=== PATIENT | female | born 1950 | race Caucasian/White ===

== ENCOUNTER 2017-05-07 08:09 | Inpatient (IN) | payer OTHER ==
--- NOTE | 2017-05-06 08:52 | HP ---
[facility] - Chief Complaint Chief Complaint: right knee pain - Past Medical History Allergies/Adverse Reactions: Allergies Allergy/AdvReac Type Severity Reaction Status Date / Time apple Allergy Severe CAN'T Verified 04/29/17 14:30 BREATH peach Allergy Severe Difficulty Verified 04/29/17 14:31 Breathing No Known Drug Allergies Allergy Verified 04/29/17 14:30 - Current Medications Current Medications: Home Medications Medication Instructions Recorded Amlodipine Besylate [Norvasc -] 10 mg PO DAILY 03/12/14 Lisinopril [Prinivil -] 40 mg PO DAILY 03/12/14 Metformin HCl 850 mg PO BID 03/12/14 Omeprazole Magnesium [Prilosec 20 mg PO DAILY #7 tablet 04/15/15 (OTC)] Atorvastatin Ca [Lipitor] 10 mg PO DAILY 04/29/17 Cholecalciferol (Vitamin D3) 1,000 unit PO DAILY 04/29/17 [Vitamin D3 -] Ferrous Sulfate 325 mg PO DAILY 04/29/17 Satellite Physical Exam - Physical Examination General Appearance: Well Nourished, Well Developed, Alert & Oriented x3 ENT: Clear Lung: Normal air movement Heart: Regular rate & rhythm Extremities: Other (right knee- + swelling, + ttp, decr rom, nvi xrays show severe tricompartmental djd) Neurological: Intact, Alert, Oriented Satellite Impression/Plan - Impression/Plan Impression: right knee djd Operative Procedure: right majo tkr Date to be Performed: 05/07/17
[2017-05-07] MEDS ORDERED: GABAPENTIN 300 MG CAPSULE (FP) PO ONE (08:44)
[2017-05-07] MEDS ORDERED: CELECOXIB 200 MG CAPSULE PO ONE (08:44)
[2017-05-07] MEDS ORDERED: TRANEXAMIC ACID 1000 MG/10 ML VIAL IVPUSH ONE (08:44)
[2017-05-07] MEDS ORDERED: oxyCODONE HCL 10 MG SUSTAINED ACTING TABLET PO ONE (08:44)
[2017-05-07] MEDS ORDERED: CEFAZOLIN 2 GM in DEXTROSE 5%-WATER - 50 ML IVPB ONE (08:44)
[2017-05-07 09:14] VITALS: BMI 37.8
[2017-05-07] MEDS ORDERED: DEXAMETHASONE SOD PHOSPHATE/PF 10 MG/ML SDV ONE (09:58)
[2017-05-07] MEDS ORDERED: MIDAZOLAM HCL 2 MG/2 ML SINGLE DOSE VIAL ONE ×2 (09:59→11:53)
[2017-05-07] MEDS ORDERED: BUPIVACAINE HCL/PF 0.5% (5MG/ML) 10 ML VIAL ONE (10:33)
[2017-05-07] MEDS ORDERED: SUCCINYLCHOLINE CHLORIDE 200 MG/10 ML VIAL ONE (10:35)
[2017-05-07] MEDS ORDERED: ePHEDrine SULFATE 50 MG/1 ML AMPULE ONE (11:04)
[2017-05-07] MEDS ORDERED: TRANEXAMIC ACID 1000 MG/10 ML VIAL ONE (11:15)
[2017-05-07] MEDS ORDERED: ONDANSETRON 4 MG/2 ML VIAL ONE (11:15)
[2017-05-07] MEDS ORDERED: ceFAZolin SODIUM 1 GM VIAL ONE (11:15)
[2017-05-07] MEDS ORDERED: DEXAMETHASONE SOD PHOSPHATE 4 MG/1 ML VIAL ONE (11:15)
[2017-05-07] MEDS ORDERED: VANCOMYCIN 1,000 MG VIAL (RESTRICTED TO ID ONLY) IVPB ONE (12:39)
[2017-05-07] MEDS ORDERED: MAG HYDROX/AL HYDROX/SIMETH 30 ML UNIT-DOSE CUP PO PRN (13:09)
[2017-05-07] MEDS ORDERED: MAGNESIUM HYDROX 2400MG/30ML ORAL SUSPENSION 30 ML CUP PO PRN (13:09)
--- NOTE | 2017-05-07 13:11 | OP ---
Operative Note - Note: Operative Date: 05/07/17 (horacio) Pre-Operative Diagnosis: right knee djd Operation: right majo tkr Post-Operative Diagnosis: Same as Pre-op Surgeon: Cristian Akins Airplane Dispatcher: Kody Mitchell Anesthesiologist/RECREATION THERAPY DIRECTOR: Eugenio Crystal Anesthesia: Spinal, Local Specimens Removed: bone fragments Estimated Blood Loss (mls): 50 (tourniquet) Operative Report Dictated: Yes
[2017-05-07] MEDS ORDERED: LACTATED RINGERS SOLUTION 1,000 ML IV SCH (13:15)
[2017-05-07] MEDS ORDERED: PROMETHAZINE HCL 25 MG/1 ML VIAL ONE (13:28)
[2017-05-07] MEDS ORDERED: ONDANSETRON 4 MG/2 ML VIAL IVPUSH PRN (13:32)
[2017-05-07] MEDS ORDERED: oxyCODONE HCL 5 MG TABLET PO PRN (13:32)
[2017-05-07] MEDS ORDERED: PROMETHAZINE HCL 25 MG/1 ML VIAL IVPUSH PRN (13:32)
[2017-05-07] MEDS: oxyCODONE HCL 5 MG TABLET PO PRN (14:30)
[2017-05-07] MEDS: ONDANSETRON 4 MG/2 ML VIAL IVPB PRN (14:35)
[2017-05-07] MEDS ORDERED: ACETAMINOPHEN 325 MG TABLET (FP) PO SCH (15:00)
[2017-05-07] MEDS ORDERED: INSULIN (NOVOLOG) ASPART 100 UNITS/ML 10ML VIAL ONE (16:43)
[2017-05-07] MEDS: ACETAMINOPHEN 325 MG TABLET (FP) PO SCH ×2 (16:44→21:50)
[2017-05-07] MEDS: INSULIN SLIDING SCALE (NOVOLOG) 1 VIAL SQ SCH ×2 (16:45→21:53)
[2017-05-07] MEDS: SENNOSIDES/DOCUSATE COMBO (SENNA PLUS) TABLET (UD) PO SCH (21:45)
[2017-05-07] MEDS: oxyCODONE HCL 10 MG SUSTAINED ACTING TABLET PO SCH (21:45)
[2017-05-07] MEDS: CEFAZOLIN 2 GM/D5W 50 ML IVPB SCH (21:46)
[2017-05-08] MEDS: ASPIRIN 325 MG TABLET PO SCH (08:31)
--- NOTE | 2017-05-08 08:39 | PN ---
Progress Note (short form) - Note Progress Note: 66F POD1 s/p R TKR under spinal anesthetic with adductor canal and selective tibial blocks. Pt states pain is controlled, does not report any anesthetic complications. Sensory and motor function intact in bilateral lower extremities. Nausea likely secondary to pain medication, improving with zofran.
[2017-05-08 08:41] LABS: MCH 26.3 pg (25.7-33.7); MCHC 32.8 g/dl (32.0-36.0); MEAN CELL VOLUME 80.2 fl (80-96); MEAN PLT VOLUME 9.1 fl (7.5-11.1); PLATELET COUNT 229 K/MM3 (134-434); RDW 14.7 % (11.6-15.6); WHITE BLOOD COUNT 10.9 K/mm3 (4.0-10.8)
--- NOTE | 2017-05-08 08:47 | PN ---
Progress Note (short form) - Note Progress Note: Ortho Pt seen and examined s/p right majo tkr pod #1 Selected Entries 05/07/17 21:06 Temperature 98.3 F Pulse Rate 85 Respiratory 17 Rate Blood Pressure 124/94 Laboratory Tests 05/08/17 07:00 WBC Pending Hgb Pending Hct Pending Plt Count Pending dressing c/d/i,calf soft, nt rom 0-40, nvi a/p PT dvt ppx pain control d/c home tomorrow if stable
[2017-05-08] MEDS: amLODIPine BESYLATE 10 MG TABLET (FP) PO SCH (09:37)
[2017-05-08] MEDS: SENNOSIDES/DOCUSATE COMBO (SENNA PLUS) TABLET (UD) PO SCH ×2 (09:38→21:04)
[2017-05-08] MEDS: ACETAMINOPHEN 325 MG TABLET (FP) PO SCH ×4 (09:38→21:03)
[2017-05-08] MEDS: PANTOPRAZOLE 40 MG TABLET (FP) PO SCH (09:38)
[2017-05-08] MEDS: LISINOPRIL 20 MG TABLET (FP) PO SCH (09:38)
[2017-05-08] MEDS: MULTIVITAMINS (DAILY MVI) TABLET (FP) PO SCH (09:38)
[2017-05-08] MEDS: oxyCODONE HCL 10 MG SUSTAINED ACTING TABLET PO SCH ×2 (09:38→21:02)
[2017-05-08] MEDS: FERROUS SO4 325 MG TABLET (FP) PO SCH (09:43)
[2017-05-08] MEDS: INSULIN SLIDING SCALE (NOVOLOG) 1 VIAL SQ SCH ×4 (11:30→22:51)
[2017-05-08] MEDS: oxyCODONE HCL 5 MG TABLET PO PRN ×3 (12:22→21:03)
[2017-05-08] MEDS: LACTATED RINGERS SOLUTION 1,000 ML IV SCH ×2 (13:01→13:50)
[2017-05-08] MEDS: CEFAZOLIN 2 GM/D5W 50 ML IVPB SCH (13:01)
--- NOTE | 2017-05-08 13:06 | OP ---
DATE OF OPERATION: 05/07/2017 PREOPERATIVE DIAGNOSES: Degenerative joint disease right knee. POSTOPERATIVE DIAGNOSES: Degenerative joint disease right knee. PROCEDURE: Right total knee replacement with robotic assisted navigation (MAKOplasty). SURGICAL ATTENDING: Cristian Akins MD ANESTHESIA: Spinal and regional. CLOSURE: Triathlon Knee System with a Press-Fit 2 femur, 2 tibia, 11 polyethylene, 29 patella, number 1 Vicryl fascia, 0 and 2-0 for subcutaneous, 3-0 Monocryl subcuticular with skin glue for skin, 4-0 undyed Vicryl for pin sites. ESTIMATED BLOOD LOSS: Negligible. TOURNIQUET TIME: Approximately 80 minutes. COMPLICATION: None. CONDITION: To the recovery room in stable condition. DESCRIPTION OF OPERATIVE PROCEDURE: The patient was taken to the operating room on May 07, 2017. Regional and spinal anesthesia was administered by the anesthesiologist. IV Kefzol and TXA were administered prophylactically prior to the case. A well-padded pneumatic tourniquet was placed on the right proximal thigh. Right lower extremity was prepped and draped in the usual sterile fashion. The leg was exsanguinated with an Esmarch bandage. Tourniquet was inflated to 275 mmHg. A 12-15 cm longitudinal midline incision centered over the patella was incised. Hemostasis was achieved with Bovie cautery. Sharp dissection was carried down to the level of the extensor mechanism which was sufficient enough for us to perform the procedure. A medial parapatellar arthrotomy was then made and the patella was everted and the knee was flexed up. The fat pad was excised. A subperiosteal dissection was done on the anterior medial proximal tibia until the knee was able to be brought forward. This was facilitated by taking the cruciate ligaments and both menisci and the cruciate ligaments were debrided. Check points were malleted on both the medial femoral condyle and the tibial plateau. Through 2 small stab incisions about a handbreadth below the tibial tubercle, 2 bicortical pins were drilled in parallel fashion. Two additional pins were drilled in the distal femur through the previously made incision from anterior to posterior in the proximal aspect of the incision up until the 2nd cortex. To both these pins we attached our navigation arrays. The knee was then registered with the navigation device from the center of rotation of the hip, medial and lateral malleoli, multiple sites on both the femur and the tibia. Proper registration was confirmed by popping the bubbles. The osteophytes were removed throughout. The knee was tensioned in flexion and extension. The virtual positon of the components were optimized by moving them in order to balance the gap in both flexion and extension. The robot was brought in the field. All the cuts were made using the robot. The bone was removed. The posterior osteophytes were debrided as well. Equal tensioning was confirmed in flexion and extension using the dog bones confirming equal gaps. The number 2 box blank machine feeder was used to cut the box in the femur. A trial number 2 femur with a number 2 tibia with 11 insert was placed and taken through a range of motion with good stability throughout. It was clipped into place and confirmation of excellent external rotation of the tibial component was confirmed with the use of the navigation device as well. Patella was calipered to thickness, was then osteotomized through the appropriate level. A 29 lollipop was used to drill lug holes in the patella. The trial component was applied. The knee was taken through a range of motion and found to go full extension, full flexion with excellent tracking of the patella throughout and good stability throughout. The lug holes in the femur were drilled. Keel in the tibia was punched. The trial components were removed. The knee was pulse antibiotic irrigated. The real Press-Fit components were then malleted into place in the tibia, femur and the patella and then the 11 mm insert was clipped into place. Range of motion and stability and tracking was described earlier. The knee was thoroughly antibiotic irrigated. The fascia was closed using number 1 Vicryl. Prior to doing so vancomycin powder was placed into the knee joint throughout. The subcutaneous was closed with 0 and 2-0 and the 3-0 Monocryl subcuticular with skin glue for skin and 4-0 undyed Vicryl for pin sites. A sterile pressure dressing was placed over the knee. Patient awakened from anesthesia and transferred to recovery room in stable condition. No complications. Estimated blood loss negligible. Tourniquet time was approximately 80 minutes. Postoperative x-rays revealed excellent position of the components. The patient was transferred to recovery in stable condition. Lex [id number]
[2017-05-08] MEDS ORDERED: ATORVASTATIN CA 10 MG TABLET (FP) PO SCH (22:00)
[2017-05-09] MEDS: oxyCODONE HCL 5 MG TABLET PO PRN ×3 (01:45→08:33)
[2017-05-09] MEDS: ACETAMINOPHEN 325 MG TABLET (FP) PO SCH ×2 (03:06→09:20)
[2017-05-09] MEDS: INSULIN SLIDING SCALE (NOVOLOG) 1 VIAL SQ SCH ×2 (06:43→11:15)
[2017-05-09] MEDS: ONDANSETRON 4 MG/2 ML VIAL IVPB PRN (06:55)
[2017-05-09 08:22] LABS: MCH 26.3 pg (25.7-33.7); MCHC 32.4 g/dl (32.0-36.0); MEAN CELL VOLUME 81.2 fl (80-96); MEAN PLT VOLUME 9.3 fl (7.5-11.1); PLATELET COUNT 203 K/MM3 (134-434); RDW 14.9 % (11.6-15.6); WHITE BLOOD COUNT 11.1 K/mm3 (4.0-10.8)
[2017-05-09] MEDS: ASPIRIN 325 MG TABLET PO SCH (08:32)
[2017-05-09] MEDS: SENNOSIDES/DOCUSATE COMBO (SENNA PLUS) TABLET (UD) PO SCH (09:18)
[2017-05-09] MEDS: amLODIPine BESYLATE 10 MG TABLET (FP) PO SCH (09:18)
[2017-05-09] MEDS: MULTIVITAMINS (DAILY MVI) TABLET (FP) PO SCH (09:18)
[2017-05-09] MEDS: FERROUS SO4 325 MG TABLET (FP) PO SCH (09:19)
[2017-05-09] MEDS: oxyCODONE HCL 10 MG SUSTAINED ACTING TABLET PO SCH (09:19)
[2017-05-09] MEDS: PANTOPRAZOLE 40 MG TABLET (FP) PO SCH (09:19)
[2017-05-09] MEDS: LISINOPRIL 20 MG TABLET (FP) PO SCH (09:19)
[2017-05-09 11:19] VITALS: BP 115/59; PULSE 93; TEMP 98.4
--- NOTE | 2017-05-10 11:22 | PATH ---
Surgical Pathology Report Patient Name: ELSIE GOMEZ [facility]. Rec. #: [id number] /Age/Gender: 1950 (Age: 66) / F Account: [id number] Location: [facility] MED-SURG Taken: 05/07/2017 Received: 05/07/2017 Reported: 05/10/2017 Physicians: Cristian Akins M.D. Specimen(s) Received RIGHT KNEE BONE AND TISSUE Clinical History Right knee osteoarthritis Final Diagnosis BONE AND SOFT TISSUE, RIGHT KNEE, REPLACEMENT: DEGENERATIVE JOINT DISEASE. Electronically Signed Quintin Mike M.D. Gross Description The specimen is received in formalin, labeled "right knee bone + tissue" and consists of multiple irregular portions of bone from a knee joint admixed with irregular portions of soft ragland-yellow adipose tissue, synovial tissue and fibrocartilage. The specimen measures 9.0 x 9.0 x 2.5 cm. in aggregate. The tibial plateau and portions of the femoral condyles are identified. They show ragland-garcia to light yellow, eroded and granular articular surfaces. The cut surfaces are light yellow and show trabecular bone. Irb Compliance Coordinator sections are submitted in one cassette after decalcification. AF/05/08/2017 final/05/08/2017
== END 2017-05-09 11:35 | DRG 470 ==
LOC: FM/S 08:09
PROVIDERS: ADMIT Orthopaedic Surgery; ATTEND Orthopaedic Surgery
PROC: 8E0Y0CZ Robotic Assisted Procedure of Lower Extremity, Open Approach (ICD-10-PCS; 2017-05-07)
PROC: 0SRC0JZ Replacement of Right Knee Joint with Synthetic Substitute, Open Approach (ICD-10-PCS; principal; 2017-05-07 11:37)
DX: M17.11 Unilateral primary osteoarthritis, right knee (principal); I10 Essential (primary) hypertension; E66.01 Morbid (severe) obesity due to excess calories; Z68.37 Body mass index [BMI] 37.0-37.9, adult; E11.9 Type 2 diabetes mellitus without complications
CPT/HCPCS: 36415; 73560-TC-RT; 85027; 88304-TC; 88311-TC; 94010; 94760; 97010-GP; 97116-GP; 97161-GP

== ENCOUNTER 2017-12-20 07:40 | Day surgery (SDC) | payer OTHER ==
[2017-12-19 12:24] VITALS: BMI 48.4
[2017-12-20] MEDS ORDERED: PROPOFOL 20 ML ONE ×2 (08:00)
[2017-12-20] MEDS ORDERED: LIDOCAINE VISCOUS 2% ORAL/TOP 20 ML UNIT-DOSE CUP ONE (08:04)
[2017-12-20] MEDS ORDERED: LIDOCAINE HCL 2% JELLY 10 ML CARTRIDGE ONE (08:06)
[2017-12-20] MEDS ORDERED: MIDAZOLAM HCL 2 MG/2 ML SINGLE DOSE VIAL ONE (08:19)
[2017-12-20] MEDS ORDERED: LIDOCAINE VISCOUS 2% ORAL/TOP 20 ML UNIT-DOSE CUP MM ONE (08:21)
[2017-12-20] MEDS ORDERED: TETRACAINE/BENZOCAINE/BUTAMBEN 20 GM SPR TP ONE (08:23)
[2017-12-20 09:18] VITALS: TEMP 97.7
[2017-12-20 09:40] VITALS: PULSE 86
[2017-12-20 11:49] VITALS: BP 134/83
--- NOTE | 2017-12-23 14:56 | PATH ---
Surgical Pathology Report Patient Name: ELSIE GOMEZ [facility]. Rec. #: [id number] /Age/Gender: 1950 (Age: 67) / F Account: [id number] Location: [facility]-ENDOSCOPY Taken: 12/20/2017 Received: 12/20/2017 Reported: 12/23/2017 Physicians: Leona Verdugo M.D. Specimen(s) Received BX RIGHT COLON POLYP Clinical History History of gastric and colon polyps Postoperative diagnosis: Colon diverticuli, polyp Final Diagnosis COLON, RIGHT, POLYP, BIOPSY: POLYPOID COLONIC MUCOSA WITHOUT SIGNIFICANT PATHOLOGIC FINDINGS. Electronically Signed Juliana Gandhi M.D. Gross Description Received in formalin, labeled "biopsy right colon polyp" are 3 ragland, irregular portions of soft tissue ranging from 0.1-0.3 cm. in greatest dimension. The specimens are submitted in toto in one cassette. /12/20/2017 saudi12/20/2017
== END 2017-12-20 10:20 | disposition home or self-care (01) ==
LOC: JASU-ENDO 07:40
PROVIDERS: ATTEND Internal Medicine Gastroenterology
PROC: 0DJ08ZZ Inspection of Upper Intestinal Tract, Via Natural or Artificial Opening Endoscopic (ICD-10-PCS; 2017-12-20)
PROC: 0DBK8ZX Excision of Ascending Colon, Via Natural or Artificial Opening Endoscopic, Diagnostic (ICD-10-PCS; principal; 2017-12-20 08:00)
DX: Z86.010 Personal history of colon polyps (principal); D12.2 Benign neoplasm of ascending colon; K57.30 Diverticulosis of large intestine without perforation or abscess without bleeding; R12 Heartburn; Z53.8 Procedure and treatment not carried out for other reasons; K31.7 Polyp of stomach and duodenum; E11.9 Type 2 diabetes mellitus without complications; I10 Essential (primary) hypertension; E66.01 Morbid (severe) obesity due to excess calories; E78.5 Hyperlipidemia, unspecified
CPT/HCPCS: 88305-TC

== ENCOUNTER 2019-05-14 08:40 | Day surgery (SDC) | payer OTHER ==
[2019-05-13 08:41] VITALS: BMI 50.5
[2019-05-14] MEDS ORDERED: LIDOCAINE VISCOUS 2% ORAL/TOP 20 ML UNIT-DOSE CUP ONE (09:57)
[2019-05-14 10:33] VITALS: TEMP 98.2
[2019-05-14 14:51] VITALS: BP 120/90; PULSE 74
--- NOTE | 2019-05-19 18:56 | PATH ---
Surgical Pathology Report Patient Name: ELSIE GOMEZ [facility]. Rec. #: [id number] /Age/Gender: 1950 (Age: 68) / F Account: [id number] Location: U-ENDOSCOPY Taken: 05/14/2019 Received: 05/14/2019 Reported: 05/19/2019 Physicians: Hari Steele D.O. Specimen(s) Received A: SECOND PORTION DUODENUM AND BULB B: ANTRAL NODULE C: GASTRIC POLYPS D: ANGULARIS/BODY E: GASTRIC POLYP LESSER CURVATURE Clinical History Iron deficiency anemia. Postoperative diagnosis: Gastritis, gastric polyps. r/o celiac sprue, adenoma/carcinoids, H pylori Final Diagnosis A. DUODENUM, SECOND PORTION AND BULB, BIOPSY: DUODENAL MUCOSA WITH MILD CHRONIC DUODENITIS AND MILD ZEYAD'S GLAND HYPERPLASIA. B. ANTRAL NODULE, BIOPSY: POLYPOID GASTRIC ANTRAL MUCOSA WITH MILD CHRONIC GASTRITIS AND FOCAL DILATED GLAND. IMMUNOHISTOCHEMICAL STAIN FOR H. PYLORI IS NEGATIVE. DETACHED SUPERFICIAL FRAGMENTS OF SMALL BOWEL MUCOSA. C. GASTRIC POLYPS, BIOPSY: HYPERPLASTIC POLYP(S). GASTRIC MUCOSA WITH SEVERE CHRONIC FOCAL ACTIVE GASTRITIS. IMMUNOHISTOCHEMICAL STAIN FOR H. PYLORI IS NEGATIVE. IMMUNOHISTOCHEMICAL STAIN FOR CHROMOGRANIN HIGHLIGHTS LINEAR AND NODULAR ECL HYPERPLASIA, SEE COMMENT. D. ANGULARIS/BODY, BIOPSY: GASTRIC BODY MUCOSA WITH SEVERE CHRONIC ACTIVE GASTRITIS AND FOCAL INTESTINAL METAPLASIA. NO DYSPLASIA IDENTIFIED. IMMUNOHISTOCHEMICAL STAIN FOR H. PYLORI IS NEGATIVE. E. GASTRIC POLYP, LESSER CURVATURE, BIOPSY: HYPERPLASTIC POLYP. GASTRIC MUCOSA WITH MODERATE CHRONIC ACTIVE GASTRITIS. IMMUNOHISTOCHEMICAL STAIN FOR H. PYLORI IS NEGATIVE. IMMUNOHISTOCHEMICAL STAIN FOR CHROMOGRANIN HIGHLIGHTS LINEAR AND NODULAR ECL HYPERPLASIA, SEE COMMENT. Comment: Parts C and E, Linear and nodular enterochromaffin cell-like (ECL) hyperplasia is seen in autoimmune metaplastic atrophic gastritis. Features diagnostic of carcinoid tumor is not identified. Suggest clinical and endoscopic correlation. Electronically Signed Juliana Gandhi M.D. Gross Description A. Received in formalin, labeled "second portion of duodenum and bulb" are 5 pieces of irregular ragland tissue ranging from 0.3-0.5 cm in greatest dimension. The specimen is submitted in toto in one cassette. B. Received in formalin, labeled " antral nodule" are 3 ragland, irregular portions of soft tissue, ranging from 0.2-0.6 cm. in greatest dimension. The specimens are submitted in toto in one cassette. C. Received in formalin, labeled "gastric polyps" are 7 ragland, irregular portions of soft tissue, ranging from 0.2 - 0.3 cm. in greatest dimension. The specimens are submitted in toto in one cassette. D. Received in formalin, labeled "angularis/body " is a ragland, irregular portion of soft tissue measuring 0.3 cm. in greatest dimension. The specimen is submitted in toto in one cassette. E. Received in formalin, labeled "gastric polyp lesser curvature" are four ragland, irregular portions of soft tissue ranging from 0.2-0.3 cm in greatest dimension. The specimen is submitted in toto in one cassette. AE/05/14/2019 ebram/05/14/2019
== END 2019-05-14 11:20 | disposition home or self-care (01) ==
LOC: JASU-ENDO 08:40
PROVIDERS: ATTEND Internal Medicine Gastroenterology
PROC: 0DB68ZX Excision of Stomach, Via Natural or Artificial Opening Endoscopic, Diagnostic (ICD-10-PCS; 2019-05-14)
PROC: 0DB98ZX Excision of Duodenum, Via Natural or Artificial Opening Endoscopic, Diagnostic (ICD-10-PCS; principal; 2019-05-14 09:45)
DX: D50.9 Iron deficiency anemia, unspecified (principal); K29.80 Duodenitis without bleeding; K29.50 Unspecified chronic gastritis without bleeding; K31.89 Other diseases of stomach and duodenum; K31.9 Disease of stomach and duodenum, unspecified; K31.7 Polyp of stomach and duodenum; K76.0 Fatty (change of) liver, not elsewhere classified; I10 Essential (primary) hypertension; E78.5 Hyperlipidemia, unspecified; E11.9 Type 2 diabetes mellitus without complications
CPT/HCPCS: 88305-TC; 88341-TC; 88342-TC

== ENCOUNTER 2021-03-02 12:22 | Day surgery (SDC) | payer OTHER ==
[2021-03-02] MEDS ORDERED: FERRIC CARBOXYMALTOSE 750 MG in SODIUM CHLORIDE 250 ML IVPB ONE (13:30)
[2021-03-02 14:28] VITALS: BP 135/68; PULSE 86; TEMP 98
== END 2021-03-02 15:01 | disposition home or self-care (01) ==
LOC: FINFUSION 12:22 → FM/S 12:26 → FINFUSION 15:01
PROVIDERS: ATTEND Internal Medicine
PROC: 3E033GC Introduction of Other Therapeutic Substance into Peripheral Vein, Percutaneous Approach (ICD-10-PCS; principal; 2021-03-02)
DX: D50.9 Iron deficiency anemia, unspecified (principal)
CPT/HCPCS: 96365; J1439

== ENCOUNTER 2021-03-09 12:27 | Day surgery (SDC) | payer OTHER ==
[2021-03-09] MEDS ORDERED: FERRIC CARBOXYMALTOSE 750 MG in SODIUM CHLORIDE 250 ML IVPB ONE (13:00)
[2021-03-09 14:50] VITALS: BP 143/62; PULSE 91; TEMP 98.6
== END 2021-03-09 14:55 | disposition home or self-care (01) ==
LOC: FINFUSION 12:27 → FM/S 12:32 → FINFUSION 14:55
PROVIDERS: ATTEND Internal Medicine
PROC: 3E033GC Introduction of Other Therapeutic Substance into Peripheral Vein, Percutaneous Approach (ICD-10-PCS; principal; 2021-03-09)
DX: D50.9 Iron deficiency anemia, unspecified (principal)
CPT/HCPCS: 96365; J1439

== ENCOUNTER 2021-04-11 04:59 | Day surgery (SDC) | payer OTHER ==
[2021-04-11 11:02] VITALS: BMI 50.1
[2021-04-11 14:30] VITALS: BP 129/74; PULSE 66; TEMP 98
== END 2021-04-11 15:00 | disposition home or self-care (01) ==
LOC: JASU-ENDO 04:59
PROVIDERS: ATTEND Internal Medicine Gastroenterology
PROC: 0DJD8ZZ Inspection of Lower Intestinal Tract, Via Natural or Artificial Opening Endoscopic (ICD-10-PCS; principal; 2021-04-11 12:15)
DX: D50.9 Iron deficiency anemia, unspecified (principal); K64.8 Other hemorrhoids; K57.30 Diverticulosis of large intestine without perforation or abscess without bleeding; E11.9 Type 2 diabetes mellitus without complications; I10 Essential (primary) hypertension; Z79.84 Long term (current) use of oral hypoglycemic drugs

== ENCOUNTER 2021-04-18 04:58 | Day surgery (SDC) | payer OTHER ==
[2021-04-14 17:05] VITALS: BMI 50.1
[2021-04-18] MEDS ORDERED: TETRACAINE/BENZOCAINE/BUTAMBEN 20 GM SPR TP ONE (10:16)
[2021-04-18] MEDS ORDERED: MIDAZOLAM HCL 2 MG/2 ML SINGLE DOSE VIAL ONE (10:29)
[2021-04-18] MEDS ORDERED: LIDOCAINE VISCOUS 2% ORAL/TOP 15 ML UNIT-DOSE CUP ONE (10:29)
[2021-04-18 11:01] VITALS: TEMP 97.5
[2021-04-18 11:27] VITALS: BP 128/69
[2021-04-18 12:40] VITALS: PULSE 81
== END 2021-04-18 12:25 | disposition home or self-care (01) ==
LOC: JASU-ENDO 04:58
PROVIDERS: ATTEND Internal Medicine Gastroenterology
PROC: 0DB68ZX Excision of Stomach, Via Natural or Artificial Opening Endoscopic, Diagnostic (ICD-10-PCS; principal; 2021-04-18 11:00)
DX: D64.9 Anemia, unspecified (principal); K31.7 Polyp of stomach and duodenum; E11.9 Type 2 diabetes mellitus without complications; Z79.84 Long term (current) use of oral hypoglycemic drugs
CPT/HCPCS: 82962; 88305-TC; 88342-TC